=== PATIENT | male | born 1980 | race Caucasian/White ===

== ENCOUNTER 2020-11-03 18:31 | Emergency (ER) | payer OTHER, SELFPAY | END 2020-11-03 22:42 | disposition home or self-care (01) | LOC: ERS 18:31 | DX: S92.024A Nondisplaced fracture of anterior process of right calcaneus, initial encounter for closed fracture (principal); S82.141A Displaced bicondylar fracture of right tibia, initial encounter for closed fracture; S82.401A Unspecified fracture of shaft of right fibula, initial encounter for closed fracture; S92.311A Displaced fracture of first metatarsal bone, right foot, initial encounter for closed fracture; S92.321A Displaced fracture of second metatarsal bone, right foot, initial encounter for closed fracture; S92.331A Displaced fracture of third metatarsal bone, right foot, initial encounter for closed fracture; S92.341A Displaced fracture of fourth metatarsal bone, right foot, initial encounter for closed fracture; K57.92 Diverticulitis of intestine, part unspecified, without perforation or abscess without bleeding; V49.9XXA Car occupant (driver) (passenger) injured in unspecified traffic accident, initial encounter | CPT/HCPCS: G0390 ==

== ENCOUNTER 2020-11-08 15:12 | Outpatient (CLI) | payer BC ==
[2020-11-09 00:51] LABS: SARS-CoV-2 PCR by NAA Not Detected (NotDetected)
== END 2020-11-08 15:13 | disposition home or self-care (01) ==
LOC: LABBT 15:12
PROVIDERS: ATTEND Orthopaedic Surgery
DX: Z20.822 Contact with and (suspected) exposure to COVID-19 (principal)
CPT/HCPCS: U0003; U0005

== ENCOUNTER 2020-11-10 09:12 | Day surgery (SDC) | payer BC ==
[2020-11-09 13:59] VITALS: BMI 32.3
[2020-11-10] MEDS ORDERED: HYDROmorphone 2 MG/ML VIAL ONE (10:18)
[2020-11-10] MEDS ORDERED: Fentanyl 250 MCG/5 ML VIAL ONE (10:18)
[2020-11-10] MEDS ORDERED: Fentanyl 100 MCG/2 ML VIAL ONE (10:51)
[2020-11-10] MEDS ORDERED: Midazolam HCl 2 mg/2 ml Vial ONE (10:51)
[2020-11-10] MEDS ORDERED: Lidocaine 1% PF 5 ML VIAL ONE (11:40)
[2020-11-10] MEDS ORDERED: Ketorolac Tromethamine 30 MG/ML VIAL ONE (11:40)
[2020-11-10] MEDS ORDERED: Bupivacaine HCl 0.5%/Epinephrine 1:200,000/PF 30 ml Vial ONE (11:40)
[2020-11-10] MEDS ORDERED: PHENYLEPHRINE-NS 100 MCG/ML 10 ML SYRINGE ONE (11:40)
[2020-11-10] MEDS ORDERED: Ondansetron PF 4 MG/2 ML Vial ONE (11:40)
[2020-11-10] MEDS ORDERED: PROPOFOL 200 MG/20 ML VIAL ONE (11:40)
[2020-11-10] MEDS ORDERED: Dexamethasone 20 MG/5 ML VIAL ONE (11:40)
== END 2020-11-10 17:25 | disposition home or self-care (01) ==
LOC: SDC 09:12
PROVIDERS: ATTEND Orthopaedic Surgery
PROC: 0QSG04Z Reposition Right Tibia with Internal Fixation Device, Open Approach (ICD-10-PCS; principal; 2020-11-10)
PROC: 0QSL04Z Reposition Right Tarsal with Internal Fixation Device, Open Approach (ICD-10-PCS; principal; 2020-11-10)
PROC: 3E0T3BZ Introduction of Anesthetic Agent into Peripheral Nerves and Plexi, Percutaneous Approach (ICD-10-PCS; principal; 2020-11-10)
PROC: 0QSN04Z Reposition Right Metatarsal with Internal Fixation Device, Open Approach (ICD-10-PCS; principal; 2020-11-10)
DX: S82.141A Displaced bicondylar fracture of right tibia, initial encounter for closed fracture (principal); S92.811A Other fracture of right foot, initial encounter for closed fracture; F17.200 Nicotine dependence, unspecified, uncomplicated; Z79.899 Other long term (current) drug therapy; V89.2XXA Person injured in unspecified motor-vehicle accident, traffic, initial encounter
CPT/HCPCS: 76000; C1713; J0690; J1100; J1170; J1885; J2250; J2405; J2704; J3010